=== PATIENT | female | born 1995 | race Caucasian/White ===

== ENCOUNTER 2017-11-25 16:56 | Emergency (ER) | payer OTHER ==
[~2017-11-25] VITALS: Ht 170.2 cm; Wt 64.0 kg
[~2017-11-25 16:56] MED LIST: ADVIL MIGRAI200 M1 PO; CEPHALEXIN500 MG OR; CIPRO500 MG OR; LORTAB 10 PO; LORTAB5 PO; PRE-NATAL PO; VIBRAMYCIN100 MG OR; no home meds
[2017-11-25] MEDS ORDERED: NEXPLANON68 MG SC (17:13)
[2017-11-25] MEDS ORDERED: DOXYCYC MONO100 M1 PO (17:28)
[2017-11-25 17:42] VITALS: BP 110/77
== END 2017-11-25 17:42 | disposition home or self-care (01) | DRG 603 ==
LOC: ED 16:56
DX: L02.411 Cutaneous abscess of right axilla (principal); Z88.2 Allergy status to sulfonamides

== ENCOUNTER 2017-12-02 16:22 | Emergency (ER) | payer OTHER ==
[~2017-12-02] VITALS: Ht 170.2 cm; Wt 65.0 kg
[~2017-12-02 16:22] MED LIST changes: +DOXYCYC MONO100 M1 PO; +NEXPLANON68 MG SC
[2017-12-02] MEDS ORDERED: PRENATAL1 TA1 (16:33)
[2017-12-02 16:55] VITALS: BP 118/72
[2017-12-02] MEDS ORDERED: TORADOL PO (16:59)
== END 2017-12-02 17:04 | disposition home or self-care (01) ==
LOC: ED 16:22
DX: L02.411 Cutaneous abscess of right axilla (principal)

== ENCOUNTER 2023-01-23 01:36 | Emergency (ER) | payer OTHER ==
[~2023-01-23] VITALS: Ht 170.2 cm; Wt 93.0 kg
[~2023-01-23 01:36] MED LIST changes: +PRENATAL1 TA1; +TORADOL PO
[2023-01-23 01:47] VITALS: BP 123/83
[2023-01-23 02:00] VITALS: BP 128/91
[2023-01-23 02:10] LABS: URINE BILIRUBIN - DIPSTICK Negative (NEGATIVE); URINE BLOOD DIPSTICK Negative (NEGATIVE); URINE GLUCOSE - DIPSTICK Negative (NEGATIVE); URINE KETONE Negative (NEGATIVE); URINE NITRITE - DIPSTICK Negative (Negative); URINE PH 6.5 (4.5-8.0); URINE PROTEIN - DIPSTICK Negative (NEG-TRACE); URINE UROBILINOGEN - DIPSTICK 0.2 E.U./dL (0.2)
[2023-01-23 02:19] LABS: URINE COLOR Yellow; URINE LEUK ESTERASE Small (NEGATIVE)
[2023-01-23 02:27] LABS: URINE BACTERIA FEW hpf; URINE SQUAMOUS EPITHELIAL CELL FEW EPI/hpf (0-FEW)
[2023-01-23 03:00] VITALS: BP 124/82
[2023-01-23] MEDS ORDERED: KEFLEX500 MG PO (03:14)
[2023-01-23 03:50] VITALS: BP 124/82
== END 2023-01-23 03:58 | disposition home or self-care (01) ==
LOC: ED 01:36
PROVIDERS: Family Medicine
DX: O26.893 Other specified pregnancy related conditions, third trimester (principal); R07.89 Other chest pain; O23.43 Unspecified infection of urinary tract in pregnancy, third trimester; N39.0 Urinary tract infection, site not specified; Z3A.00 Weeks of gestation of pregnancy not specified